=== PATIENT | female | born 1970 | race Caucasian/White ===

== ENCOUNTER 2020-01-12 13:16 | Outpatient (CLI) | payer BC, SELFPAY ==
--- NOTE | ~2020-01-12 | US_ITS ---
EXAMINATION: US FNA w image guidance, US FNA additional DATE: 01/12/2020 14:12 INDICATION: Thyroid nodules. TECHNIQUE: The procedure and its benefits, risks, and benefits were discussed with the patient. Risks specifical ly discussed included bleeding. The patient verbalized understanding of the risks and agreed to proce ed. The neck was prepped and draped in the usual sterile manner. 1% lidocaine was used for local ane sthesia. Four passes were made with a 25G needle into the lesion in right thyroid lobe. Appropriate needle location was documented with continuous sonographic guidance. Five passes were made with a 25G needle into the lesion in left thyroid lobe. Appropriate needle loc ation was documented with continuous sonographic guidance. There were no immediate complications. Th e patient understood to call the ordering physician for results after a week and a half and verbalize d that understanding. FINDINGS: Grayscale ultrasound images demonstrate needles advanced into a 1.4 cm hypoechoic solid nodule in inf erior right thyroid lobe for biopsy. Grayscale ultrasound images demonstrate needles advanced into a 1.9 cm hypoechoic solid nodule in left thyroid lobe IMPRESSION: 1. Ultrasound-guided fine needle aspiration of a right thyroid nodule. 2. Ultrasound-guided fine-needle aspiration of a left thyroid nodule. Reviewed, dictated and finalized at location A. ENT SAFETY COORDINATOR IMPRESSION: 1. Ultrasound-guided fine needle aspiration of a right thyroid nodule. 2. Ultrasound-guided fine-needle aspiration of a left thyroid nodule.
== END 2020-01-12 13:17 | disposition home or self-care (01) ==
PROVIDERS: PCP Family Medicine; Visit Provider Internal Medicine Endocrinology, Diabetes & Metabolism
DX: E04.1 Nontoxic single thyroid nodule (principal)
CPT/HCPCS: 10005; 10006; 88173; 88305